=== PATIENT | male | born 1930 | race Caucasian/White ===

== ENCOUNTER 2017-03-31 10:24 | Emergency (ER) | payer MEDICARE, OTHER ==
[~2017-03-31] VITALS: Ht 177.8 cm; Wt 78.0 kg
[~2017-03-31 10:24] MED LIST: CAR2 PO; COU5 PO; METO50TA PO; SIMV80TA4 PO
[2017-03-31 10:44] VITALS: BP 121/71; PULSE 58; RESP 15; O2SAT 100
--- NOTE | 2017-03-31 11:06 | ED.REPORT ---
HPI- Male Date of Service Mar 31, 2017 ED Provider: Tamy Martinez History of Present Illness: blood in urine. Friday night frequent urination. [facility] 1000 ml out. Catheter placed with expectation to have it removed today. Had a good stool movement. 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 no primary care. no pain Nursing Notes Stated Complaint: BLOOD IN URINE Chief Complaint: Male Abdominal Pain Nursing Notes Reviewed: Yes Allergies: Coded Allergies: No Known Allergies (Verified , 03/31/17) Scheduled Doxazosin (Cardura) 4 Mg Tablet 4 MG PO HS Metoprolol Succinate ER (Metoprolol Succinate ER) 50 Mg Tab.er.24h 25 MG PO BID Simvastatin (Simvastatin) 40 Mg Tablet 40 MG PO HS Warfarin Sodium (Coumadin) 5 Mg Tablet 5 MG PO Almendarez, ,W,Tr, Sa Warfarin Sodium (Coumadin) 5 Mg Tablet 7.5 MG PO M,F General Time Seen by MD: 11:04 Chief Complaint Blood in urine, Unable to urinate Hx Obtained From: Patient, Daughter Past Medical History Past Medical History Denies: Asthma Past Surgical History knees replaced bilateral Smoking History Former Smoker (quit 20 years ago) Social History Alcohol Use: Denies alcohol use Drug Use: Denies drug use Occupation lives by self 03/31/2017 Ambulatory Status Independent Review of Systems Basic Review of Systems Eyes: Vision NL, No discharge Hematologic: No bleeding, No bruising Psychiatric: Normal thought content Physical Exam Initial Vital Signs Vital Signs (First) Date Time Temp Pulse Resp B/P Pulse Ox O2 Delivery O2 Flow Rate FiO2 03/31/17 10:44 36.8 58 15 121/71 100 Room Air Initial VS: Reviewed, Vital signs normal General/Constitutional: Well-developed, Well-nourished Head / Eyes: Atraumatic, Normocephalic, PERRL ENT: Mucous membranes moist, Conjunctiva normal, No scleral icterus Neck: Supple, Non-tender, Full range of motion Respiratory: Breath sounds normal, Clear to auscultation, No respiratory distress Cardiovascular: Regular rate & rhythm, Heart sounds normal, Intact distal pulses Abdomen / GI: Soft, Non-tender, No guarding, No rebound, No distention Back: No CVA tenderness Lymphatic: No lymphadenopathy Extremities: Vascular intact, Neuro intact, No swelling, No tenderness Skin: Warm, Dry, No cyanosis Neurologic: Alert, Oriented, Nonfocal Psychiatric: Mood/affect normal, Behavior normal, Normal thought content General/Constitutional: Awake, Alert, No acute distress Abdomen: Atraumatic, Soft, Non-tender, McBurney's non-tender Respiratory / Chest: Atraumatic, Breath sounds NL, Breath sounds = bilat, No respiratory distress Cardiovascular: Heart rate NL, Regular rhythm, Heart sounds NL, No gallop Interpretation & Diagnostics Lab Results Interpretation Result Diagram: 03/31/17 1140 03/31/17 1140 Test 03/31/17 11:36 03/31/17 11:40 Urine Color Bloody (YELLOW) Urine Appearance Cloudy (CLEAR,HAZY) Urine pH 7.0 (5.0-8.0) Urine Specific [place] 1.015 (1.003-1.035) Urine Protein 100mg/dL (NEG,TRACE) Urine Glucose (UA) Negativemg/dL (NEGATIVE) Urine Ketones Negativemg/dL (NEGATIVE) Urine Occult Blood Large (NEGATIVE) Urine Nitrite Positive (NEGATIVE) Urine Bilirubin Negative (NEGATIVE) Urine Urobilinogen Normalmg/dL (NORMAL) Urine Leukocyte Esterase Trace (NEGATIVE) Urine RBC >50/hpf (0-2) Urine WBC 0-5/hpf (0-5) Urine Epithelial Cells Occasional/hpf (NONE-MOD) Urine Crystals None seen (NONE SEEN) Urine Bacteria None/hpf (NONE-FEW) Urine Hyaline Casts None/lpf (NONE) Urine Granular Casts None seen (NONE SEEN) Urine Waxy Casts None seen (NONE SEEN) Urine Red Blood Cell Casts None seen (NONE SEEN) Urine White Blood Cell Casts None seen (NONE SEEN) Urine Mucus Present (None Seen) Urine Trichomonas None seen (NONE SEEN) Urine Yeast None (NONE SEEN) Urinalysis Comment None Urine Culture Reflexed Indicated White Blood Count 8.4th/mm3 (3.8-10.1) Red Blood Count 4.20mil/mm3 (4.40-5.80) Hemoglobin 12.4g/dL (13.8-17.2) Hematocrit 37.6% (41.0-50.0) Mean Corpuscular Volume 89.5fL (81-100) Mean Corpuscular Hemoglobin 29.5pg (27.0-35.0) Mean Corpuscular Hemoglobin Concent 33.0% (32.0-37.0) Red Cell Distribution Width 14.4% (12.3-15.4) Platelet Count 183bil/L (150-400) Neutrophils (%) (Auto) 69.2% (40-74) Lymphocytes (%) (Auto) 15.2% (14-46) Monocytes (%) (Auto) 14.8% (4-12) Eosinophils (%) (Auto) 0.6% (0-5) Basophils (%) (Auto) 0.1% (0-3) Prothrombin Time 33.2sec (8.1-12.5) Prothromb Time International Ratio 3.03ratio Sodium Level 140mEq/L (134-144) Potassium Level 4.9mEq/L (3.5-5.2) Chloride Level 103mEq/L (97-108) Carbon Dioxide Level 23mmol/L (18-29) Blood Urea Nitrogen 18mg/dL (8-27) Creatinine 0.96mg/dL (0.76-1.27) Estimat Glomerular Filtration Rate 79mL/min (>59) Glucose Level 115mg/dL (60-99) Calcium Level 9.1mg/dL (8.5-10.1) Total Bilirubin 0.7mg/dL (0.0-1.2) Aspartate Amino Transf (AST/SGOT) 20U/L (0-50) Alanine Aminotransferase (ALT/SGPT) 13U/L (0-44) Alkaline Phosphatase 101U/L (25-160) Total Protein 6.4g/dL (6.4-8.4) Albumin 3.8g/dL (3.4-5.0) Hold Clifford Top Tube Received (Received) Lab Results Interpretation: urine with positive nitrates US Renal/Urinary Tract Caution: Report not yet finalized and possibly incomplete! PROCEDURE: US PELVIC SONOGRAM, LIMITED INDICATIONS: Hematuria. TECHNIQUE: Real-time transabdominal scanning was performed of the urinary bladder, with image documentation. COMPARISON: None. FINDINGS: Kennedy catheter is present in the urinary bladder is decompressed. Gallbladder wall measures 9 mm and is not well seen. Prostate is enlarged measuring 6.1 x 5.2 x 4.9 cm. IMPRESSION: Kennedy catheter present decompressing the urinary bladder which is suboptimally visualized. Enlarged prostate. Dictated by: Eliu Centeno RRA Interpreted: Janis Appiah MD on 03/31/2017 at 13:30 Transcribed by: MALIA on 03/31/2017 at 13:33 Re-Eval/Medical Decision Med Decision/Clinical Course 86 year old male with minimal care presents to the Er for removal of catheter and blood in his urine. Denies pain. Patient reports he had frequency since friday. Went to the Urgent care and was placed in a kennedy catheter. Per his report had 1000 ml out. Blood started yesterday afternoon. Is on coumadin, INR at 3.03. Reports no primary care for years. US per verbal report indicates thickened wall with calcium, polyp on wall. Also shows enlarged prostrate. Patient with hx of smoking. Discussed with patti, agrees with bactrim and flomax and to follow with his office. No sign of urosespis or prostatitis Discharge & Departure Impression: Primary Impression: Bladder infection Additional Impressions: Enlarged prostate Elevated blood sugar level Decreased hemoglobin Urinary retention Disposition: Home Patient Instructions: Urinary Retention in Men (ED), Urinary Tract Infection in Men (ED) Additional Instructions: Your blood sugar in the ER today was 115. An a1c is pending, this will help define wether you are diabetic. Your hemaglobin and hemacrit are low at 12.4 and 37.4. This will need further exploration. This can be done in primary care. Consider the residency clinic. The ultrasound shows your prostrate is enlarged. You are being started on flomax. Take this daily in the evening. Use bactrim in the am and pm for 7 days for the infection. Your INR is at 3.03. Please call cardiology for follow up. Call Dr. Baltazar for urology follow up. State seen in the ER for infection and retention. Referrals: Vinayak Baltazar MD [facility] EDSupervising Provider for APC: Eunice Patel MD copies to: Vinayak Baltazar MD, Sue ARNP Mar 31, 2017 11:06
[2017-03-31] MEDS ORDERED: SIMV40TA5 PO (11:48)
[2017-03-31] MEDS ORDERED: WARF5TAB PO ×2 (11:48)
[2017-03-31] MEDS ORDERED: DOXA4TAB2 PO (11:48)
[2017-03-31] MEDS ORDERED: METO-272 PO (11:48)
[2017-03-31 12:01] LABS: BASOPHILS % (AUTO) 0.1 % (0-3); EOSINOPHILS % (AUTO) 0.6 % (0-5); MONOCYTES % (AUTO) 14.8 % (4-12); Mean Corpuscular Hemoglobin 29.5 pg (27.0-35.0); Mean Corpuscular Volume 89.5 fL (81-100); NEUTROPHILS % (AUTO) 69.2 % (40-74); Platelet Count 183 bil/L (150-400)
[2017-03-31 12:12] LABS: INR 3.03 ratio
[2017-03-31 12:17] LABS: APPEARANCE,URINE CLOUDY (CLEAR,HAZY); COLOR,URINE BLOODY (YELLOW)
[2017-03-31 12:18] LABS: OCCULT BLOOD,URINE LARGE (NEGATIVE)
[2017-03-31 12:19] LABS: UROBILINOGEN,URINE NORMAL (NORMAL)
[2017-03-31 12:55] VITALS: BP 123/70; PULSE 56; RESP 15; O2SAT 95
--- NOTE | 2017-03-31 13:34 | DRSVH ---
PROCEDURE: US PELVIC SONOGRAM, LIMITED INDICATIONS: Hematuria. TECHNIQUE: Real-time transabdominal scanning was performed of the urinary bladder, with image documentation. COMPARISON: None. FINDINGS: Mann catheter is present in the urinary bladder is decompressed. Gallbladder wall measur es 9 mm and is not well seen. Prostate is enlarged measuring 6.1 x 5.2 x 4.9 cm. IMPRESSION: Mann catheter within decompressed urinary bladder which is suboptimally visualized. Enlarged prostate. Dictated by: Eliu Centeno [facility] Interpreted: Janis Appiah MD on 03/31/2017 at 13:30 Transcribed by: MALIA on 03/31/2017 at 13:33 Approved by: Janis Appiah M.D. on 04/01/2017 at 8:03
== END 2017-03-31 13:14 | disposition home or self-care (01) ==
LOC: SED 10:24
DX: N30.90 Cystitis, unspecified without hematuria (principal); N40.0 Benign prostatic hyperplasia without lower urinary tract symptoms; R73.9 Hyperglycemia, unspecified; R71.0 Precipitous drop in hematocrit; R33.9 Retention of urine, unspecified; Z87.891 Personal history of nicotine dependence
CPT/HCPCS: 36415; 76857; 80053; 81000; 83036; 85025; 85610; 87086; 99284; G0463